=== PATIENT | male | born 1925 | race Caucasian/White ===

== ENCOUNTER 2016-09-02 10:02 | Emergency (ER) ==
[2016-09-02 10:13] VITALS: BP 175/101; TEMP 98.7; BMI 28.3
[2016-09-02 10:49] LABS: BASOPHILS % (AUTO) 0.6 % (0.0-3.0); HEMOGLOBIN 14.1 g/dl (14.0-18.0); IMMATURE GRANULOCYTE % (AUTO) 0.2 % (0.0-5.0); LYMPHOCYTES # (AUTO) 0.8 K/uL (0.60-3.4); LYMPHOCYTES % (AUTO) 13.9 (10.0-50.0); MEAN CORPUSCULAR HEMOGLOBIN 36.3 pg (27.0-31.0); MEAN CORPUSCULAR HGB CONC 35.3 (31.8-35.4); MEAN CORPUSCULAR VOLUME 103.1 fl (80.0-94.0); MONOCYTES # (AUTO) 0.7 K/uL (0.4-2.0); MONOCYTES % (AUTO) 12.2 (0-10); NEUTROPHILS % (AUTO) 73.1; PLATELET COUNT 134 10^3/uL (140-440); RED BLOOD COUNT 3.88 10^6/ul (4.70-6.10); WHITE BLOOD COUNT 5.41 K/ul (4.2-10.2)
--- NOTE | 2016-09-02 11:07 | DI ---
EXAM: Chest two view, frontal and lateral views. HISTORY: Cough. COMPARISON: 06/10/2011. FINDINGS: Heart is enlarged. Calcifications present in a mildly tortuous thoracic aorta. There is no vascular congestion. No consolidation, pleural effusion or pneumothorax identified. Degenerati ve changes present in the spine. Since the prior study, there has been no significant interval swann ge. IMPRESSION: No acute cardiopulmonary process. The.
--- NOTE | 2016-09-02 11:30 | CT ---
EXAM: CT Abdomen without contrast. CT Pelvis without contrast. HISTORY: Right-sided abdominal pain. COMPARISON: 04/25/2016. TECHNIQUE: Multiple axial images of the abdomen and pelvis were obtained without intravenous contra st. Images were reformatted in the coronal plane. FINDINGS: Please note that evaluation of the abdominal and pelvic structures is limited due to lack of intravenous contrast. Calcified granulomatous changes noted in the lung bases. Heart is enlarged. Degenerative changes present in the spine are with left convex thoracolumbar spinal curvature noted. Old right posterior rib fractures noted. Multiple hepatic cysts noted. Gallbladder is absent. The pancreas, spleen, adrenal glands are unre markable. 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 There is mild right hydronephrosis/hydroureter secondary to an 0.5 cm obstructing calculus in the di stal right ureter approximately 1 cm above ureteral vesicle junction. Additional smaller nonobstruc ting right renal calculi are present. Left kidney appears unremarkable. There has been previous ventral and inguinal hernia repair. There is evidence for bowel obstruction . Diverticula are present in the colon. The appendix is not seen. Haziness of the central small b owel mesentery is stable. Urinary bladder appears unremarkable. Prostatic calcifications present. Atherosclerotic calcifications noted. No free fluid or free air identified IMPRESSION: A 0.5 cm obstructing calculus in the distal right ureter causing mild right hydronephrosis.
[2016-09-02 11:36] LABS: ALBUMIN 3.8 g/dL (3.4-5.0); ALBUMIN/GLOBULIN RATIO 1.46; ANION GAP 15.9; BILIRUBIN,TOTAL 2.6 mg/dL (0.00-1.20); BUN/CREATININE RATIO 14.19; CALCIUM 9.1 mg/dL (8.2-10.2); CREATININE 1.62 mg/dL (0.60-1.10); POTASSIUM 3.9 mmol/L (3.5-5.1); TOTAL PROTEIN 6.4 g/dL (5.8-8.1); TROPONIN I 0.016 ng/ml (0.0000-0.4000)
[2016-09-02 11:58] LABS: BILIRUBIN,URINE Negative (NEGATIVE); KETONES,URINE Negative (NEGATIVE); LEUKOCYTE ESTERASE ,URINE Negative (NEGATIVE); NITRITE,URINE Negative (NEGATIVE); PH,URINE 5.5 (5-9); PROTEIN,URINE Negative (NEGATIVE); URINE, BLOOD Negative (NEGATIVE)
[2016-09-02 12:00] LABS: ADD URINE MICROSCOPIC NO
--- NOTE | 2016-09-02 13:08 | ED.PDOC ---
General ED Provider: Dr. JAE JEFF Chief Complaint: Abdominal Pain Stated Complaint: right flank and lower abdominal pain Time Seen by Physician: 10:00 Information Source: Patient Exam Limitations: No limitations Primary Care Provider: LISSA MENDEZ Nursing and Triage Documentation Reviewed and Agree: Yes Musculoskeletal Complaint Exam - Back Pain Complaint/Exam Mechanism of Injury: Reports: No known trauma Onset/Duration: today Symptoms Are: Still present Timing: Intermittent Episodes Lasting: Minutes Initial Severity: Mild Current Severity: Mild Location: Reports: Discrete (right flank) Character: Reports: Aching Aggravating: Reports: None Alleviating: Reports: None Associated Signs and Symptoms: Reports: Flank pain (right). Denies: Swelling, Redness, Bruising, Fever, Weakness, Numbness, Tingling, Abdominal pain, Bladder incontinence, Bowel incontinence, Weight loss, Pain with weight bearing Related History: Reports: Similar episode TAD Risk Factors: Reports: Hypertension AAA Risk Factors: Reports: Hypertension Cauda Equina Risk Factors: Reports: None Epidural Abcess Risk Factors: Reports: None Related Surgical History: Reports: None Focal Tenderness: No Paraspinal Muscle Spasm: No Scoliosis: No Lordosis: No Kyphosis: No SLR Test: Right Negative, Left Negative Hip Motion Testing Pain: Right Negative, Left Negative Focal Weakness: Present: None Focal Sensory Loss: Present: None Gait: Present: Unable Differential Diagnoses: Arthritis, Renal Colic, Strain, Sprain Review of Systems - Review Of Systems Constitutional: Reports: No symptoms Eyes: Reports: No symptoms Ears, Nose, Mouth, Throat: Reports: No symptoms Respiratory: Reports: No symptoms Cardiac: Reports: No symptoms GI: Reports: Abdominal pain : Reports: No symptoms Musculoskeletal: Reports: Back pain Skin: Reports: No symptoms Neurological: Reports: No symptoms Endocrine: Reports: No symptoms Hematologic/Lymphatic: Reports: No symptoms All Other Systems: Reviewed and Negative Past Medical History - Past Medical History Endocrine: Reports: DM 2 Cardiovascular: Reports: Hypertension Respiratory: Reports: None Hematological: Reports: None Gastrointestinal: Reports: None Genitourinary: Reports: None Neuro/Psych: Reports: CVA, Anxiety, Depression Musculoskeletal: Reports: None Cancer: Reports: None Other Pertinent Past Medical History: arthritis, chronic back pain - Surgical History General Surgical History: Reports: Hernia Repair ( x 3 ), Other (BOWEL SURGERY ) - Family History Family History: Reports: Unknown - Social History Smoking Status: Never smoker Hx Substance Use: No Alcohol Screening: None Physical Exam - Physical Exam Appearance: Well-appearing, No pain distress, Well-nourished Eyes: LOVELY, EOMI, Conjunctiva clear ENT: Ears normal, Nose normal, Oropharynx normal Respiratory: Airway patent, Breath sounds clear, Breath sounds equal, Respirations nonlabored Cardiovascular: RRR, Pulses normal, No rub, No murmur GI/: Soft, Nontender, No masses, Bowel sounds normal, No Organomegaly Musculoskeletal: Normal strength, ROM intact, No edema, No calf tenderness Skin: Warm, Dry, Normal color Neurological: Sensation intact, Motor intact, Reflexes intact, Cranial nerves intact, Alert, Oriented Psychiatric: Affect appropriate, Mood appropriate Interpretation - Radiology Interpretation Radiology Interpretation By: Radiologist Radiology Results: Positive (obstructing stone 0.5cm right UVJ) Physician Notification - Case Discussed Physician Notified: jack Time of Notification: 14:12 (sent home with pain meds flomax ) Critical Care Note - Critical Care Note Total Time (mins): 0 Course - Course Hematology/Chemistry: 09/02/16 10:31 09/02/16 10:31 Orders, Labs, Meds: Lab Review 09/02/16 09/02/16 10:31 11:50 WBC 5.41 RBC 3.88 L Hgb 14.1 Hct 40.0 L MCV 103.1 H MCH 36.3 H MCHC 35.3 RDW Coeff of Jean 13.1 Plt Count 134 L Immature Gran % (Auto) 0.2 Neut % (Auto) 73.1 Lymph % (Auto) 13.9 [place] % (Auto) 12.2 H Eos % (Auto) 0.0 Baso % (Auto) 0.6 Immature Gran # (Auto) 0.0 Neut # 4.0 Lymph # 0.8 [place] # 0.7 Eos # 0.0 Baso # 0.0 Sodium 140 Potassium 3.9 Chloride 101 Carbon Dioxide 27 Anion Gap 15.9 BUN 23 H Creatinine 1.62 H Estimated GFR (MDRD) 40.00 BUN/Creatinine Ratio 14.19 Glucose 104 Calcium 9.1 Total Bilirubin 2.60 H AST 19 ALT 19 Alkaline Phosphatase 44 L Total Creatine Kinase 74 Troponin I 0.0160 Total Protein 6.4 Albumin 3.8 Globulin 2.6 Albumin/Globulin Ratio 1.46 Amylase 47 Lipase 42 Urine Color Yellow Urine Clarity Clear Urine pH 5.5 Ur Specific [place] 1.015 Urine Protein Negative Urine Glucose (UA) Negative Urine Ketones Negative Urine Blood Negative Urine Nitrite Negative Urine Bilirubin Negative Urine Urobilinogen 0.2 Ur Leukocyte Esterase Negative Orders Category Date Time Status AMYLASE Stat LAB 09/02/16 10:31 Completed CBC W/ AUTO DIFF Stat LAB 09/02/16 10:31 Completed COMPREHENSIVE METABOLIC PANEL Stat LAB 09/02/16 10:31 Completed CREATINE KINASE Stat LAB 09/02/16 10:31 Completed LIPASE Stat LAB 09/02/16 10:31 Completed TROPONIN I Stat LAB 09/02/16 10:31 Completed URINALYSIS C & S IF INDICATED Stat LAB 09/02/16 11:50 Completed CHEST, 2 VIEWS PA & LAT Stat RADS 09/02/16 10:[address] ABDOMEN/PELVIS WO CONTRAST Stat RADS 09/02/16 10:31 Completed Vital Signs: Temp Pulse Resp BP Pulse Ox 09/02/16 10:03 98.7 F 54 L 20 175/101 H 96 Departure - Departure Time of Disposition: 14:00 Disposition: HOME SELF-CARE Discharge Problem: Urinary tract obstruction due to kidney stone, Renal insufficiency, Abdominal pain Instructions: Chronic Kidney Disease (ED), Renal Colic (ED), Kidney Stones (ED) , How to Strain Your Urine (ED), Flank Pain (ED) Condition: Good Pt referred to PMD for follow-up: No Additional Instructions: Please call your Family Physician as soon as possible to schedule a follow-up appointment. Allergies/Adverse Reactions: Allergies cephalexin [From Keflex] Adverse Reaction (Verified 09/02/16 10:16) Home Medications: Ambulatory Orders Amiodarone HCl 200 mg PO DAILY 06/21/15 Aspirin [Aspirin EC] 81 mg PO DAILYWM 06/21/15 Carvedilol 12.5 mg PO BID 06/21/15 Furosemide [Lasix] 20 mg PO BID 06/21/15 Lisinopril 10 mg PO DAILY 06/21/15 Multivitamin W-Minerals/Lutein [Vision Plus Lutein Vitamin Tab] 1 tab PO DAILY 06/21/15 [place]-3 Fatty Acids/Fish Oil [Fish Oil 1,000 mg Capsule] 1 cap PO DAILY Pantoprazole Sodium 40 mg PO DAILY 06/21/15 Potassium Chloride [K-Dur] 1.5 tab PO EVERY OTHER DAY 06/21/15 Sertraline HCl 100 mg PO DAILY 06/21/15 Cholecalciferol (Vitamin D3) [Vitamin D3] 400 unit PO DAILY 09/02/16 Hydrocodone/Acetaminophen [Hydrocodon-Acetaminophen 5-325] 1 each PO TID PRN 04/10 Disposition Discussed With: Patient, Family
== END 2016-09-02 14:49 | disposition home or self-care (01) ==
LOC: ED 10:02
DX: N13.2 Hydronephrosis with renal and ureteral calculous obstruction (principal); N28.9 Disorder of kidney and ureter, unspecified; R10.9 Unspecified abdominal pain; I10 Essential (primary) hypertension; E11.9 Type 2 diabetes mellitus without complications; M19.90 Unspecified osteoarthritis, unspecified site; M54.9 Dorsalgia, unspecified; G89.29 Other chronic pain; Z79.899 Other long term (current) drug therapy; Z86.73 Personal history of transient ischemic attack (TIA), and cerebral infarction without residual deficits
CPT/HCPCS: 36415; 80053; 81001; 82150; 82550; 83690; 84484; 85025; 99283

== ENCOUNTER 2016-10-23 20:14 | Emergency (ER) ==
[2016-10-23 20:23] VITALS: BP 174/89; TEMP 98.5; BMI 28.2
--- NOTE | 2016-10-23 20:33 | ED.PDOC ---
General ED Provider: Dr. JACKELIN BENITES-ER Chief Complaint: Non-specific Complaint Stated Complaint: he has skin tear --its bleeding Time Seen by Physician: 20:20 Mode of Arrival: Walk-In Information Source: Patient Exam Limitations: No limitations Primary Care Provider: LISSA MENDEZ Nursing and Triage Documentation Reviewed and Agree: Yes Skin Complaint Exam - Laceration/Upper Ext. Complaint/Exam Location of Injury: Left, Arm Mechanism of Injury: Abrasion Onset/Duration: one hour Symptoms Are: Still present Initial Severity: Mild Current Severity: Mild Aggravating: Movement Alleviating: Compression Associated Signs and Symptoms: Denies: Fever, Chills, Erythema, Numbness, Tingling Differential Diagnoses: Abrasion, Avulsion, Other Review of Systems - Review Of Systems Constitutional: Reports: No symptoms Eyes: Reports: No symptoms Ears, Nose, Mouth, Throat: Reports: No symptoms Respiratory: Reports: No symptoms Cardiac: Reports: No symptoms GI: Reports: No symptoms : Reports: No symptoms Musculoskeletal: Reports: No symptoms Skin: Reports: Other Neurological: Reports: No symptoms Endocrine: Reports: No symptoms Hematologic/Lymphatic: Reports: No symptoms All Other Systems: Reviewed and Negative Past Medical History - Past Medical History Endocrine: Reports: DM 2 Cardiovascular: Reports: Hypertension Respiratory: Reports: None Hematological: Reports: None Gastrointestinal: Reports: None Genitourinary: Reports: None Neuro/Psych: Reports: CVA, Anxiety, Depression Musculoskeletal: Reports: None Cancer: Reports: None Other Pertinent Past Medical History: arthritis, chronic back pain - Surgical History General Surgical History: Reports: Hernia Repair ( x 3 ), Other (BOWEL SURGERY ) - Family History Family History: Reports: Unknown - Social History Smoking Status: Never smoker Hx Substance Use: No Alcohol Screening: None Lives: With family - Immunizations Tetanus Shot up to Date: Yes Physical Exam - Physical Exam Appearance: Well-appearing, No pain distress, Well-nourished Eyes: LOVELY, EOMI, Conjunctiva clear ENT: Ears normal, Nose normal, Oropharynx normal Neck: Supple Respiratory: Airway patent, Breath sounds clear, Breath sounds equal, Respirations nonlabored Cardiovascular: RRR, Pulses normal, No rub, No murmur GI/: Soft Musculoskeletal: Normal strength, ROM intact, No edema, No calf tenderness Skin: Warm, Dry, Normal color Neurological: Sensation intact, Motor intact, Reflexes intact, Cranial nerves intact, Alert, Oriented Psychiatric: Affect appropriate, Mood appropriate Procedures - Laceration/Wound Repair No standard instances Wound Description: Skin tear Wound Length (cm): 2cm Wound Explored: Clean Wound Irrigated: Yes Wound Prep: Hibiclens Layer Closure?: No Sterile Dressing Applied?: Yes Splint Applied?: No Sling Applied?: No Re-Evaluation - Re-Evaluation Time of Re-Evaluation: 20:34 Status: Improved Vital Signs Stable: Yes Pain Level: 0 Appearance: NAD Lungs: Clear Skin: Warm and Dry Neuro: Alert and Oriented X3 CV: RRR (surgicel and telfa dressing applied along with tom wrap) Critical Care Note - Critical Care Note Total Time (mins): 0 Course - Course Orders, Labs, Meds: Orders Category Date Time Status TOM [ED TOM WRAP] .ONCE EMERGENCY 10/23/16 20:36 Active Ice Pack [ED APPLY ICE AFFECTED AREA] .ONCE EMERGENCY 10/23/16 20:37 Active SURGICELL [ED SURGICELL APPLICATION] .ONCE EMERGENCY 10/23/16 20:35 Active Vital Signs: Temp Pulse Resp BP Pulse Ox 10/23/16 20:15 98.5 F 58 L 20 174/89 H 97 Departure - Departure Time of Disposition: 20:36 Disposition: HOME SELF-CARE Discharge Problem: Skin tear Instructions: Skin Tear (ED) Condition: Good Pt referred to PMD for follow-up: Yes Additional Instructions: keep wrapped tonight--stoip asa and fish oil for 3 days--change dressing daily till healed Allergies/Adverse Reactions: Allergies cephalexin [From Keflex] Adverse Reaction (Verified 10/23/16 20:23) Home Medications: Ambulatory Orders Amiodarone HCl 200 mg PO DAILY 06/21/15 Aspirin [Aspirin EC] 81 mg PO DAILYWM 06/21/15 Carvedilol 12.5 mg PO BID 06/21/15 Furosemide [Lasix] 30 mg PO BID 06/21/15 Lisinopril 10 mg PO DAILY 06/21/15 Multivitamin W-Minerals/Lutein [Vision Plus Lutein Vitamin Tab] 1 tab PO DAILY 06/21/15 [place]-3 Fatty Acids/Fish Oil [Fish Oil 1,000 mg Capsule] 1 cap PO BID 06/21/15 Pantoprazole Sodium 40 mg PO DAILY 06/21/15 Potassium Chloride [K-Dur] 1.5 tab PO EVERY OTHER DAY 06/21/15 Sertraline HCl 100 mg PO DAILY 06/21/15 Cholecalciferol (Vitamin D3) [Vitamin D3] 400 unit PO BID 09/02/16 Hydrocodone/Acetaminophen [Hydrocodon-Acetaminophen 5-325] 1 each PO TID PRN 04/10 Disposition Discussed With: Patient, Family
== END 2016-10-23 20:45 | disposition home or self-care (01) ==
LOC: ED 20:14
DX: S41.112A Laceration without foreign body of left upper arm, initial encounter (principal)
CPT/HCPCS: 99282

== ENCOUNTER 2016-11-22 15:42 | Emergency (ER) ==
[2016-11-22 15:53] VITALS: BP 171/100; TEMP 97; BMI 27.8
--- NOTE | 2016-11-22 16:06 | ED.PDOC ---
General ED Provider: Dr. MIRI ORTEGA JR Chief Complaint: Constipation Stated Complaint: ABDOMINAL PAIN NAUSEA AND BLOATING has chronic constipation-- states will go 3-4 days without bm then bowel will move--on amitiza--had loose bm with first dose--has had intermittent abd pain--freq belching--had exploratory surg with several adhesions to bowels. [ End ]97.0 59 20 97 171/ 100. htn dm cva gerd depr anx arth chronicback pain. exploratory abd surg-november 2006 Time Seen by Physician: 16:05 Mode of Arrival: Walk-In Information Source: Patient, Family Exam Limitations: No limitations Primary Care Provider: LISSA MENDEZ Nursing and Triage Documentation Reviewed and Agree: No Review of Systems - Review Of Systems Constitutional: Reports: Malaise Eyes: Reports: No symptoms Ears, Nose, Mouth, Throat: Reports: No symptoms Respiratory: Reports: No symptoms Cardiac: Reports: No symptoms GI: Reports: Abdomen distended, Abdominal pain, Diarrhea, Nausea : Reports: No symptoms Musculoskeletal: Reports: No symptoms Skin: Reports: No symptoms Neurological: Reports: Cognitive dysfunction Endocrine: Reports: No symptoms Hematologic/Lymphatic: Reports: No symptoms All Other Systems: Other Past Medical History - Past Medical History Endocrine: Reports: DM 2 Cardiovascular: Reports: Hypertension Respiratory: Reports: None Hematological: Reports: None Gastrointestinal: Reports: None Genitourinary: Reports: None Neuro/Psych: Reports: CVA, Anxiety, Depression Musculoskeletal: Reports: None Cancer: Reports: None Other Pertinent Past Medical History: arthritis, chronic back pain - Surgical History General Surgical History: Reports: Hernia Repair ( x 3 ), Other (BOWEL SURGERY ) - Family History Family History: Reports: Unknown - Social History Smoking Status: Never smoker Hx Substance Use: No Alcohol Screening: None Physical Exam - Physical Exam Appearance: Well-appearing Ill-appearing: Mild Pain Distress: Mild Eyes: LOVELY, EOMI, Conjunctiva clear ENT: Ears normal, Nose normal, Oropharynx normal Neck: Supple Respiratory: Airway patent, Breath sounds clear, Breath sounds equal, Respirations nonlabored Cardiovascular: RRR, Pulses normal, No rub, No murmur GI/: Soft, No masses, Tender, Bowel sounds hyperactive Musculoskeletal: Normal strength, ROM intact, No edema, No calf tenderness Skin: Warm, Dry, Normal color Neurological: Sensation intact, Motor intact, Reflexes intact, Cranial nerves intact, Alert Psychiatric: Affect appropriate, Mood appropriate Critical Care Note - Critical Care Note Total Time (mins): 0 Course - Course Hematology/Chemistry: 11/22/16 16:10 11/22/16 16:10 Orders, Labs, Meds: Lab Review 11/22/16 16:10 WBC 4.44 RBC 4.05 L Hgb 14.6 Hct 41.0 L MCV 101.2 H MCH 36.0 H MCHC 35.6 H RDW Coeff of Jean 12.5 Plt Count 188 Immature Gran % (Auto) 0.2 Neut % (Auto) 60.4 Lymph % (Auto) 26.8 [place] % (Auto) 11.7 H Eos % (Auto) 0.0 Baso % (Auto) 0.9 Immature Gran # (Auto) 0.0 Neut # 2.7 Lymph # 1.2 [place] # 0.5 Eos # 0.0 Baso # 0.0 Sodium 139 Potassium 3.5 Chloride 105 Carbon Dioxide 25 Anion Gap 12.5 BUN 16 Creatinine 1.00 Estimated GFR (MDRD) 70.00 BUN/Creatinine Ratio 16.00 Glucose 113 Calcium 9.0 Total Bilirubin 1.79 H AST 14 L ALT 15 Alkaline Phosphatase 55 L Total Protein 6.6 Albumin 3.8 Globulin 2.8 Albumin/Globulin Ratio 1.36 Amylase 49 Lipase 52 Orders Category Date Time Status AMYLASE Stat LAB 11/22/16 16:10 Completed CBC W/ AUTO DIFF Stat LAB 11/22/16 16:10 Completed COMPREHENSIVE METABOLIC PANEL Stat LAB 11/22/16 16:10 Completed LIPASE Stat LAB 11/22/16 16:10 Completed URINALYSIS C & S IF INDICATED Stat LAB 11/22/16 16:[address] ABDOMEN/PELVIS WO CONTRAST Stat RADS 11/22/16 16:06 Completed Vital Signs: Temp Pulse Resp BP Pulse Ox 11/22/16 15:43 97 F L 59 L 20 171/100 H 97 Departure - Departure Time of Disposition: 17:54 Disposition: HOME SELF-CARE Discharge Problem: Constipation, Medication reaction Instructions: Abdominal Pain (ED), Gas and Bloating (ED) Condition: Good Pt referred to PMD for follow-up: Yes Additional Instructions: caution with Amitiza, can cause side effect- (no evidence of excess stool on x rays) no concerning changes in the gut recheck PMD one week return if fever or unable to keep clear liquids down try 1 tablet once a day if feeling constipated Allergies/Adverse Reactions: Allergies cephalexin [From Keflex] Adverse Reaction (Verified 11/22/16 15:55) Home Medications: Ambulatory Orders Amiodarone HCl 200 mg PO DAILY 06/21/15 Aspirin [Aspirin EC] 81 mg PO DAILYWM 06/21/15 Carvedilol 12.5 mg PO BID 06/21/15 Furosemide [Lasix] 30 mg PO BID 06/21/15 Lisinopril 10 mg PO DAILY 06/21/15 Multivitamin W-Minerals/Lutein [Vision Plus Lutein Vitamin Tab] 1 tab PO DAILY 06/21/15 [place]-3 Fatty Acids/Fish Oil [Fish Oil 1,000 mg Capsule] 1 cap PO BID 06/21/15 Pantoprazole Sodium 40 mg PO DAILY 06/21/15 Potassium Chloride [K-Dur] 1.5 tab PO EVERY OTHER DAY 06/21/15 Sertraline HCl 100 mg PO DAILY 06/21/15 Cholecalciferol (Vitamin D3) [Vitamin D3] 400 unit PO BID 09/02/16
[2016-11-22 16:17] LABS: BASOPHILS % (AUTO) 0.9 % (0.0-3.0); HEMOGLOBIN 14.6 g/dl (14.0-18.0); IMMATURE GRANULOCYTE % (AUTO) 0.2 % (0.0-5.0); LYMPHOCYTES # (AUTO) 1.2 K/uL (0.60-3.4); LYMPHOCYTES % (AUTO) 26.8 (10.0-50.0); MEAN CORPUSCULAR HGB CONC 35.6 (31.8-35.4); MEAN CORPUSCULAR VOLUME 101.2 fl (80.0-94.0); MONOCYTES # (AUTO) 0.5 K/uL (0.4-2.0); MONOCYTES % (AUTO) 11.7 (0-10); NEUTROPHILS # (AUTO) 2.7 K/ul (2.0-6.9); NEUTROPHILS % (AUTO) 60.4; PLATELET COUNT 188 10^3/uL (140-440); RED BLOOD COUNT 4.05 10^6/ul (4.70-6.10); WHITE BLOOD COUNT 4.44 K/ul (4.2-10.2)
[2016-11-22 16:38] LABS: ALBUMIN 3.8 g/dL (3.4-5.0); ALBUMIN/GLOBULIN RATIO 1.36; ANION GAP 12.5; BILIRUBIN,TOTAL 1.79 mg/dL (0.00-1.20); POTASSIUM 3.5 mmol/L (3.5-5.1); TOTAL PROTEIN 6.6 g/dL (5.8-8.1)
--- NOTE | 2016-11-22 16:50 | CT ---
EXAM: CT of the abdomen pelvis without contrast History: Abdominal pain. Comparison: CT abdomen pelvis 09/02/2016 Technique: Multiplanar CT images through the abdomen pelvis were obtained without the administratio n of IV contrast Findings: Heart is mildly enlarged. Lung bases are free of consolidation. No acute osseous abnorm alities. Osteopenia. Degenerative changes of the spine. No change in the nonspecific ezra mesentery. Cholecystectomy clips. No change in the hepatic cyst s. Atherosclerotic vascular calcifications. Spleen is unremarkable. No peripancreatic inflammatio n. Adrenal glands are unremarkable. 3 mm right renal calcification. No left renal calculi. No hy dronephrosis. No ureteral calculi. There are a few punctate 1 mm calculi seen within the left side of the bladder. No bowel obstruction. No free air. No ascites. Postsurgical changes of ventral hernia repair again noted. No bladder wall thickening. Trace pelvic fluid. Prostatic calcificatio ns. Prostate is enlarged. No perirectal inflammation. Impression: 1. Nonobstructing right nephrolithiasis. 2. Small bladder calculi. 3. 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 4. Colonic diverticulosis. 5. Mild cardiomegaly. 6. Enlarged prostate. 7. Trace pelvic fluid. 8. No change in the hepatic cysts.
== END 2016-11-22 18:10 | disposition home or self-care (01) ==
LOC: ED 15:42
DX: K59.00 Constipation, unspecified (principal); T47.2X5A Adverse effect of stimulant laxatives, initial encounter; R10.9 Unspecified abdominal pain; R11.0 Nausea; R14.0 Abdominal distension (gaseous); I10 Essential (primary) hypertension; E11.9 Type 2 diabetes mellitus without complications; Z79.899 Other long term (current) drug therapy
CPT/HCPCS: 36415; 80053; 82150; 83690; 85025; 99283

== ENCOUNTER 2017-01-14 10:47 | Emergency (ER) | payer OTHER ==
[2017-01-14 10:52] VITALS: BP 138/70; TEMP 97.5; BMI 27.3
[2017-01-14 11:32] LABS: BASOPHILS % (AUTO) 0.7 % (0.0-3.0); HEMATOCRIT 34.1 % (42.0-52.0); HEMOGLOBIN 11.9 g/dl (14.0-18.0); IMMATURE GRANULOCYTE % (AUTO) 0.2 % (0.0-5.0); LYMPHOCYTES # (AUTO) 0.9 K/uL (0.60-3.4); LYMPHOCYTES % (AUTO) 18.7 (10.0-50.0); MEAN CORPUSCULAR HEMOGLOBIN 36.2 pg (27.0-31.0); MEAN CORPUSCULAR HGB CONC 34.9 (31.8-35.4); MEAN CORPUSCULAR VOLUME 103.6 fl (80.0-94.0); MONOCYTES # (AUTO) 0.5 K/uL (0.4-2.0); MONOCYTES % (AUTO) 11.5 (0-10); NEUTROPHILS # (AUTO) 3.2 K/ul (2.0-6.9); NEUTROPHILS % (AUTO) 68.9; PLATELET COUNT 170 10^3/uL (140-440); RED BLOOD COUNT 3.29 10^6/ul (4.70-6.10); WHITE BLOOD COUNT 4.61 K/ul (4.2-10.2)
[2017-01-14 11:46] LABS: PARTIAL THROMBOPLASTIN TIME 24.1 SEC (23.9-40.0); PROTHROMBIN TIME 10.7 SEC (9.3-11.0)
[2017-01-14 12:00] LABS: ALBUMIN 3.5 g/dL (3.4-5.0); ALBUMIN/GLOBULIN RATIO 1.46; ANION GAP 12.3; BILIRUBIN,TOTAL 1.75 mg/dL (0.00-1.20); BUN/CREATININE RATIO 13.25; CALCIUM 8.8 mg/dL (8.2-10.2); CREATININE 0.83 mg/dL (0.60-1.10); POTASSIUM 3.3 mmol/L (3.5-5.1); TOTAL PROTEIN 5.9 g/dL (5.8-8.1); TROPONIN I 0.029 ng/ml (0.0000-0.4000)
--- NOTE | 2017-01-14 13:22 | CT ---
Exam: CT thoracic spine without contrast. Clinical indication: Fall with back pain. TECHNIQUE: Axial unenhanced CT images from the lower cervical spine through the upper lumbar spine were obtained followed by coronal and sagittal reformats. Findings: There is a kyphoscoliosis of the thoracic spine convex right. The remainder of the alignment is wit hin normal limits. There is multilevel thoracic vertebral body degenerative changes. There are no acute fractures within the visualized vertebral bodies and ribs. There is multilevel f lowing anterior vertebral body osteophytes seen throughout the thoracic spine. There is no evidence of spinal stenosis or neural foraminal narrowing throughout the thoracic spine. Note is again made of a 1.9 cm probable splenic artery aneurysm. Otherwise, the visualized soft tis sues are unremarkable. Impression: 1. No acute thoracic vertebral fracture. 2. Splenic artery aneurysm.
--- NOTE | 2017-01-14 13:23 | CT ---
EXAM: CT of the cervical spine without contrast History: Head and neck trauma. Technique: Multiplanar CT images through the cervical spine were obtained without the administratio n of IV contrast Findings: Mucosal thickening of the sphenoid sinuses with debris. Atherosclerotic vascular calcific ations. The visualized upper lungs are free of consolidation. Right mastoid effusion Mild anterolisthesis of C4 and C5 most likely degenerative in nature. No acute fracture. Osteopeni a. No prevertebral soft tissue swelling. Predental space is not widened. Severe disc space narrow ing at C4-5 with endplate sclerosis and osteophyte formation. Bony spinal canal is not significantl y compromised. Multilevel bilateral bony neural foraminal narrowing secondary to uncovertebral and facet hypertrophy. Impression: 1. No acute fracture. 2. 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 3. Sphenoid sinus disease.
--- NOTE | 2017-01-14 13:23 | CT ---
EXAM: CT BRAIN HISTORY: Fall, 4 days prior TECHNIQUE: CT brain without intravenous contrast. 5-mm axial sections with Reformations. COMPARISON: 04/25/2016 FINDINGS: There is generalized atrophy. Moderately severe chronic microvascular ischemic change is suggested. These findings are stable. Brain otherwise is unremarkable without distinct evidence of hemorrhage or large vessel distribution recent ischemic infarction. There is no suggestion of acute hydroceph alus or subdural fluid collection. No mass or mass effect. No skull fracture is identified. There is a central opacification within the left sphenoid sinus me asuring 1.5 x 2.7 cm unchanged since the previous exam. This may be related to chronic sinus diseas e. A neoplasm would be a less likely consideration given relative stability. Mastoid air cells are aerated. IMPRESSION: 1. Significant involutional changes appear stable. No obvious acute intracranial process or injury . No skull fracture. 2. Sinus disease as described.
--- NOTE | 2017-01-14 13:28 | CT ---
Exam: CT lumbar spine without contrast. Clinical indication: Fall with back pain. TECHNIQUE: Axial unenhanced CT images from the lower thoracic spine through the mid sacrum were obt ained followed by coronal and sagittal reformats. Comparison is made to the prior study dated 04/25/2016. Findings: There are five non-rib bearing lumbar vertebra. There is a lumbar scoliosis convex left secondary to multilevel degenerative changes. The remainder of the alignment is within normal limits. The there are no acute fractures within the visualized bony structures. At the T12-L1 level there is degenerative disc and facet disease, but no spinal stenosis or neural f oraminal narrowing. At the L1-L2 level there is a moderate posterior disc osteophyte complex associate with bilateral fa cet hypertrophic degenerative changes, causing moderate to severe right neural foraminal narrowing. At the L2-L3 level there is moderate degenerative disc disease associate with a mild to moderate bro ad-based posterior disc bulge and bilateral facet hypertrophic degenerative changes, causing moderat e to severe right and mild left neural foraminal narrowing. At the L3-L4 level there is a large posterior disc osteophyte complex associate with bilateral facet hypertrophic degenerative changes and ligamentum flavum hypertrophy, causing mild spinal stenosis a nd moderate to severe bilateral neural foraminal narrowing. At the L4-L5 level there is a mild posterior disc osteophyte complex associate with bilateral facet hypertrophic degenerative changes, causing minimal right and moderate to severe left neural foramina l narrowing. At the L5-S1 level there is a posterior disc osteophyte complex associate with bilateral facet hyper trophic degenerative changes, causing mild left neural foraminal narrowing. There is sigmoid diverticulosis. There is aortoiliac atherosclerotic vascular calcifications. There is a 0.6 cm right-sided nonobstructive renal calculus. 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 The remainder the visualized soft tissues are u nremarkable. Impression: 1. No acute lumbar fracture. 2. Lumbar scoliosis convex left. 3. Multilevel degenerative changes with spinal stenosis and neural foraminal narrowing, as describe d above on the level by level basis. 4. Sigmoid diverticulosis. 5. 0.6 cm right-sided nonobstructive renal calculus. 6. 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
--- NOTE | 2017-01-14 13:28 | CT ---
EXAM: CT chest without contrast HISTORY: Fall 4 days ago COMPARISON: None TECHNIQUE: Serial axial images of the chest were obtained from the lung apices to the upper abdomen without contrast. These were viewed in multiple planes. FINDINGS: The thyroid is mildly heterogeneous. The visualized vessels demonstrate mild atheroscler otic disease. Pulmonary artery is normal. The heart is enlarged with no pericardial fluid. There are calcified hilar lymph nodes. There is no pathologically enlarged lymph nodes present. There is no pneumothorax or pleural effusion. There is mild bibasilar atelectasis. There is mild l ower lobe airway thickening and minimal ground-glass. There is a 0.5 cm pulmonary nodule on image 4 0 in the right lung base. There is a 0.3 cm pulmonary nodule in the left upper lobe on image 17. T here is a calcified granuloma in the left lower lobe on image 34. The airways are patent. There is significant degenerative disease of both shoulders with narrowing and osteophyte formation. The ribs demonstrate no cortical irregularity or displaced fracture. There is multilevel degenerat lupillo disease of the thoracic spine. This is better described on same day CT. Soft tissues in the up per abdomen are better evaluated on same day CT abdomen pelvis. IMPRESSION: 1. No acute cardiopulmonary process or pneumothorax. There is no displaced rib fracture identified . 2. Degenerative disease of the shoulders and spine which are better described on same day CT thorac ic spine. 3. Pulmonary nodules as described above with mild lower lobe airway thickening and inflammatory str anding likely representing chronic process. If further evaluation is clinically indicated, follow-u p CT in 6 months - 1 year is recommended. 4. Mild scattered atherosclerotic disease.
--- NOTE | 2017-01-14 13:28 | DI ---
EXAM: Three views of the right shoulder HISTORY: Pain post fall 4 days prior. COMPARISON: Same day right humerus x-ray FINDINGS: There is no cortical irregularity or displaced fracture of the right shoulder. There is n o lytic or blastic lesion. There is significant narrowing of the glenohumeral joint and the acromio clavicular joint with significant osteophyte formation. The adjacent ribs are normal in appearance. IMPRESSION: Moderate to severe degenerative disease of the right shoulder with no displaced fractur e or dislocation.
--- NOTE | 2017-01-14 13:29 | DI ---
Exam: Three views left shoulder Clinical indication: Fall with left shoulder pain. 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 Otherwise, there are no fractures, dislocations or other significant bony abnormalities. The visualized pulmonary pa renchyma and ribs are unremarkable. Impression: 1. 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 2. Otherwise negative radiographs of the left shoulder.
--- NOTE | 2017-01-14 13:31 | DI ---
EXAM: Two views of the left humerus HISTORY: Fall 4 days prior. COMPARISON: Same day CT chest and multiple x-rays FINDINGS: There is degenerative disease of the left shoulder with narrowing and osteophyte formation . There is no displaced fracture or dislocation. There is no lytic or blastic lesion identified. The elbow is poorly visualized. Soft tissues are unremarkable. IMPRESSION: 1. No acute abnormality or displaced fracture of the left humerus. 2. Degenerative disease of the left shoulder.
--- NOTE | 2017-01-14 13:32 | DI ---
Exam: Two views right femur. Clinical indication: Fall with right leg pain. Findings / impression: There are no acute fractures, dislocations or other significant bony abnorma lities. The joints are within normal limits for the patient's age.
--- NOTE | 2017-01-14 13:32 | DI ---
EXAM: Two views of the right humerus HISTORY: Pain post fall 4 days prior. COMPARISON: Right shoulder x-rays same day FINDINGS: There is no cortical irregularity or displaced fracture of the right humerus. There is de generative change of the right shoulder better described on same day shoulder x-ray. There is no ly tic or blastic lesion. The soft tissues are unremarkable. IMPRESSION: No acute abnormality or displaced fracture of the right humerus with degenerative disea se of the right shoulder.
--- NOTE | 2017-01-14 13:33 | DI ---
Exam: Two views right tibia and fibula. Clinical indication: Fall with right leg pain. Findings: There is no right knee or ankle effusion. There is some mild osteoarthritic changes within the righ t knee. Otherwise, there are no fractures, dislocations or other significant bony abnormality. Impression: No acute fractures.
--- NOTE | 2017-01-14 13:33 | DI ---
EXAM: Two views of the right knee HISTORY: Pain post fall 4 days prior. COMPARISON: Same day, opposite knee x-rays FINDINGS: There is moderate narrowing of the medial compartment and osteophyte formation. The later al compartment demonstrates osteophyte formation and mild calcifications of the meniscus. There is no displaced fracture or dislocation. The patella is normal in position with mild narrowing and ost eophyte formation. The soft tissues are unremarkable. IMPRESSION: 1. No displaced fracture or dislocation of the right knee. 2. 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
--- NOTE | 2017-01-14 13:33 | DI ---
EXAM: Two views of the left tibia and fibula HISTORY: Pain post fall 4 days prior. COMPARISON: Same day left knee x-rays FINDINGS: There is a left knee arthroplasty change with hardware in place. There is no cortical irr egularity or displaced fracture of the left tibia or fibula. There is degenerative change of the le ft ankle in the hind foot. There is no abnormal periosteal reaction. Soft tissues are unremarkable . IMPRESSION: 1. No displaced fracture or dislocation of the left tibia-fibula. 2. Left knee arthroplasty changes better described on same day knee x-ray. 3. Mild degenerative disease of the left ankle.
--- NOTE | 2017-01-14 13:34 | DI ---
Exam: Two views left femur. Clinical indication: Fall with pain. Findings / impression: There is minimal left hip osteoarthritic changes. There is evidence of a left total knee arthroplas ty, without radiographic evidence of hardware complication. The remainder of the visualized bony st ructures are unremarkable.
--- NOTE | 2017-01-14 13:34 | DI ---
Exam: Two views left knee. linical indication: Fall with left knee pain. Findings: There is no left knee effusion. There is a left total knee arthroplasty without radiographic evidence of hardware complication. Oth erwise, there are no fractures, dislocations or other significant bony abnormalities. There is atherosclerotic vascular calcifications. Impression: Left total knee arthroplasty, without radiographic evidence of hardware complication.
--- NOTE | 2017-01-14 13:35 | DI ---
Exam: Two views right elbow. Clinical indication: Fall with right elbow pain. Findings: There is no right elbow effusion. There is an enthesophyte on the right lateral epicondyle. Otherw ise, there are no fractures, dislocations or other significant bony abnormalities. Impression: Negative radiographs of the right elbow.
--- NOTE | 2017-01-14 13:36 | DI ---
EXAM: Two views of the left elbow HISTORY: Pain post fall. COMPARISON: Same day right elbow x-rays FINDINGS: There is no cortical irregularity or displaced fracture. There is degenerative change and mild joint space narrowing. The left elbow with an olecranon osteophyte present. The soft tissues are unremarkable. There are no displaced fat pads. IMPRESSION: Degenerative disease of the left elbow with no acute abnormality or displaced fracture.
--- NOTE | 2017-01-14 13:37 | DI ---
EXAM: Three views of the right wrist HISTORY: Fall with pain. COMPARISON: Left wrist x-rays same day FINDINGS: There is narrowing of the radiocarpal joint. There is no displaced fracture or dislocatio n of the right wrist. There is osteophyte formation. The carpal bones demonstrate mild degenerativ e change. The metacarpals are unremarkable. IMPRESSION: Degenerative disease of the right wrist with no acute abnormality or displaced fracture .
--- NOTE | 2017-01-14 13:37 | DI ---
EXAM: Three views left hand. CLINICAL INDICATION: Fall with left hand pain. FINDINGS: There are degenerative changes at the first carpal-metacarpal joint. There is also degenerative dominik nges within the left second PIP and DIP joints. There are also degenerative changes at the left radi ocarpal joint. Otherwise, there are no fractures, dislocations or other significant bony abnormaliti es. There is no gross soft tissue abnormality. IMPRESSION: 1. No acute fractures. 2. Degenerative changes as described above.
--- NOTE | 2017-01-14 13:38 | DI ---
EXAM: Two views of the right hand HISTORY: Pain post fall 4 days prior. COMPARISON: Same day right wrist x-ray FINDINGS: There is degenerative disease of the radiocarpal joint with narrowing and osteophyte forma tion. The metacarpals and fingers demonstrate no cortical irregularity or displaced fracture. Ther e is scattered narrowing and osteophyte formation throughout the DIP and PIP joints. Note definitiv e erosion is identified. The soft tissues are unremarkable. IMPRESSION: No acute abnormality or displaced fracture of the right hand. There is scattered degen erative disease throughout the right hand.
--- NOTE | 2017-01-14 13:38 | DI ---
EXAM: Two views left ankle Clinical indication: Fall with left ankle pain. Findings: There is no soft tissue abnormality. There is no left ankle effusion. There is an enthesophyte on the calcaneus at the insertion of the Achilles tendon. Otherwise, there are are no fractures, dislocations or other significant bony abnormalities. Impression: Negative radiographs of the left ankle.
--- NOTE | 2017-01-14 13:44 | ED.PDOC ---
General ED Provider: Dr. JAE JEFF Chief Complaint: Fall Stated Complaint: fall pain all over Time Seen by Physician: 11:00 Mode of Arrival: Wheelchair Information Source: Patient Exam Limitations: No limitations Primary Care Provider: LISSA MENDEZ Nursing and Triage Documentation Reviewed and Agree: Yes Trauma/Injury Complaint Exam - Trauma Complaint/Exam Location of Pain or Injury: Reports: Head, Neck, RUE, LUE, Chest, Abdomen, Back , RLE, LLE Mechanism of Injury: Reports: Fall (standing postion) Onset/Duration: 3 days ago Symptoms Are: Still present Timing of Treatment: Delayed Initial Severity: Moderate Current Severity: Moderate Character: Reports: Aching Aggravating: Reports: Movement, Ambulation, Palpation Alleviating: Reports: Rest Associated Signs and Symptoms: Reports: Bruising (upper ext lower left right lower ext). Denies: LOC, Confusion, Memory loss, Lethargy, Vomiting, Bleeding, Swelling, Extremity disuse, Painful respiration, Hoarseness, Dysphagia, Hemoptysis, Significant blood loss Penetrating Injury Risk Factors: Reports: None Related Surgical History: Reports: None Nexus Low Risk Criteria: No post-midline CS tender, No evidence of intoxicat., No Altered LOC, No focal neuro deficit, No distracting injuries Glascow Coma Scale (see protocol): 15 Review of Systems - Review Of Systems Constitutional: Reports: No symptoms Eyes: Reports: No symptoms Ears, Nose, Mouth, Throat: Reports: No symptoms Respiratory: Reports: No symptoms Cardiac: Reports: Chest pain GI: Reports: No symptoms : Reports: No symptoms Musculoskeletal: Reports: Back pain, Neck pain Skin: Reports: No symptoms Neurological: Reports: No symptoms Endocrine: Reports: No symptoms Hematologic/Lymphatic: Reports: No symptoms All Other Systems: Reviewed and Negative Past Medical History - Past Medical History Endocrine: Reports: DM 2 Cardiovascular: Reports: Hypertension Respiratory: Reports: None Hematological: Reports: None Gastrointestinal: Reports: None Genitourinary: Reports: None Neuro/Psych: Reports: CVA, Anxiety, Depression Musculoskeletal: Reports: None Cancer: Reports: None Other Pertinent Past Medical History: arthritis, chronic back pain - Surgical History General Surgical History: Reports: Hernia Repair ( x 3 ), Other (BOWEL SURGERY ) - Family History Family History: Reports: Unknown - Social History Smoking Status: Never smoker Hx Substance Use: No Alcohol Screening: None Physical Exam - Physical Exam Appearance: Well-appearing, No pain distress, Well-nourished Eyes: LOVELY, EOMI, Conjunctiva clear ENT: Ears normal, Nose normal, Oropharynx normal Respiratory: Airway patent, Breath sounds clear, Breath sounds equal, Respirations nonlabored Cardiovascular: RRR, Pulses normal, No rub, No murmur GI/: Soft, Nontender, No masses, Bowel sounds normal, No Organomegaly Musculoskeletal: Normal strength, ROM intact, No edema, No calf tenderness Skin: Warm, Dry (ecchymotic changes all lower) Neurological: Sensation intact, Motor intact, Reflexes intact, Cranial nerves intact, Alert, Oriented Psychiatric: Affect appropriate, Mood appropriate Interpretation - Radiology Interpretation Radiology Interpretation By: Radiologist Critical Care Note - Critical Care Note Total Time (mins): 0 Course - Course Hematology/Chemistry: 01/14/17 11:25 01/14/17 11:25 Orders, Labs, Meds: Lab Review 01/14/17 11:25 WBC 4.61 RBC 3.29 L Hgb 11.9 L Hct 34.1 L MCV 103.6 H MCH 36.2 H MCHC 34.9 RDW Coeff of Jean 14.6 Plt Count 170 Immature Gran % (Auto) 0.2 Neut % (Auto) 68.9 Lymph % (Auto) 18.7 Terry % (Auto) 11.5 H Eos % (Auto) 0.0 Baso % (Auto) 0.7 Immature Gran # (Auto) 0.0 Neut # 3.2 Lymph # 0.9 Terry # 0.5 Eos # 0.0 Baso # 0.0 PT 10.7 INR 1.04 APTT 24.1 Sodium 140 Potassium 3.3 L Chloride 104 Carbon Dioxide 27 Anion Gap 12.3 BUN 11 Creatinine 0.83 Estimated GFR (MDRD) 87.00 BUN/Creatinine Ratio 13.25 Glucose 100 Calcium 8.8 Total Bilirubin 1.75 H AST 16 ALT 14 Alkaline Phosphatase 46 L Total Creatine Kinase 102 Troponin I 0.0290 Total Protein 5.9 Albumin 3.5 Globulin 2.4 Albumin/Globulin Ratio 1.46 Orders Category Date Time Status EKG-(ED ONLY) Stat CARDIO 01/14/17 11:14 Completed CBC W/ AUTO DIFF Stat LAB 01/14/17 11:25 Completed COMPREHENSIVE METABOLIC PANEL Stat LAB 01/14/17 11:25 Completed CREATINE KINASE Stat LAB 01/14/17 11:25 Completed PARTIAL THROMBOPLASTIN TIME Stat LAB 01/14/17 11:25 Completed PT WITH INR Stat LAB 01/14/17 11:25 Completed TROPONIN I Stat LAB 01/14/17 11:25 Completed ANKLE, LEFT 2 VIEWS Stat RADS 01/14/17 12:[address] ABDOMEN/PELVIS WO CONTRAST Stat RADS 01/14/17 11:[address] CERVICAL SPINE W/O CONTRAST Stat RADS 01/14/17 11:[address] CHEST W/O CONTRAST Stat RADS 01/14/17 11:[address] HEAD W/O CONTRAST Stat RADS 01/14/17 11:[address] LUMBAR SPINE W/O CONTRAST Stat RADS 01/14/17 11:[address] THORACIC SPINE W/O CONTRAST Stat RADS 01/14/17 11:17 Completed ELBOW, LEFT 2 VIEWS Stat RADS 01/14/17 11:21 Completed ELBOW, RIGHT 2 VIEWS Stat RADS 01/14/17 11:21 Completed FEMUR, LEFT 2 VIEWS Stat RADS 01/14/17 11:24 Completed FEMUR, RIGHT 2 VIEWS Stat RADS 01/14/17 11:24 Completed HAND, LEFT 2 VIEWS Stat RADS 01/14/17 11:22 Completed HAND, RIGHT 2 VIEWS Stat RADS 01/14/17 11:22 Completed HUMERUS, LEFT 2VIEWS Stat RADS 01/14/17 11:21 Completed HUMERUS, RIGHT 2 VIEWS Stat RADS 01/14/17 11:21 Completed KNEE, LEFT 1 OR 2 VIEWS Stat RADS 01/14/17 11:14 Completed KNEE, RIGHT 1 OR 2 VIEWS Stat RADS 01/14/17 11:14 Completed SHOULDER, LEFT MIN 2V Stat RADS 01/14/17 11:20 Completed SHOULDER, RIGHT MIN 2V Stat RADS 01/14/17 11:20 Completed TIBIA/FIBULA, LEFT 2 VIEWS Stat RADS 01/14/17 11:24 Completed TIBIA/FIBULA, RIGHT 2 VIEW Stat RADS 01/14/17 11:24 Completed WRIST, LEFT 3 VIEWS Stat RADS 01/14/17 11:23 Taken WRIST, RIGHT 3 VIEWS Stat RADS 01/14/17 11:23 Completed Vital Signs: Temp Pulse Resp BP Pulse Ox 01/14/17 10:48 97.5 F L 67 16 138/70 96 Departure - Departure Time of Disposition: 13:45 Disposition: HOME SELF-CARE Discharge Problem: Falls, Neck pain Back pain Qualifiers: Back pain location: low back pain Back pain Qualifiers: Back pain location: low back pain Instructions: Acute Low Back Pain (ED) Condition: Good Pt referred to PMD for follow-up: No Additional Instructions: Please call your Family Physician as soon as possible to schedule a follow-up appointment. Allergies/Adverse Reactions: Allergies cephalexin [From Keflex] Adverse Reaction (Verified 01/14/17 10:52) Home Medications: Ambulatory Orders Amiodarone HCl 200 mg PO DAILY 06/21/15 Aspirin [Aspirin EC] 81 mg PO DAILYWM 06/21/15 Carvedilol 12.5 mg PO BID 06/21/15 Furosemide [Lasix] 20 mg PO BID 06/21/15 Lisinopril 10 mg PO DAILY 06/21/15 Multivitamin W-Minerals/Lutein [Vision Plus Lutein Vitamin Tab] 1 tab PO DAILY 06/21/15 [place]-3 Fatty Acids/Fish Oil [Fish Oil 1,000 mg Capsule] 1 cap PO BID 06/21/15 Pantoprazole Sodium 40 mg PO DAILY 06/21/15 Potassium Chloride [K-Dur] 1.5 tab PO DAILY 06/21/15 Sertraline HCl 100 mg PO DAILY 06/21/15 Cholecalciferol (Vitamin D3) [Vitamin D3] 400 unit PO BID 09/02/16 Acetaminophen 500 mg PO Q4-6H PRN 01/14/17 Tramadol HCl 1 - 2 tab PO TID 01/14/17
--- NOTE | 2017-01-14 13:44 | CT ---
EXAM: CT ABDOMEN AND PELVIS HISTORY: Pain, fall TECHNIQUE: CT abdomen and pelvis without intravenous contrast. Images were reconstructed using 5 m m section thickness. Reformations were prepared. COMPARISON: 11/22/2016 FINDINGS: A few low attenuation lesions of the liver are stable since the prior study and older exam in 2016 p robably representing cysts. Spleen within normal limits. Gallbladder is absent. Pancreas and adre nal glands are within normal limits. There is a 1.8 cm partially calcified left renal artery aneury sm which is stable. There is a 0.25 cm calculus within the inferior right kidney. The kidneys were otherwise unremarkable. At the right vesicoureteral junction, there are a few punctate calcificati ons measuring 0.2 cm or smaller. These may represent small stones lodged at the vesicoureteral junc tion, just within the urinary bladder or conceivably soft tissue calcifications at this junction alt lamar are new since the previous exam making the latter less likely. The urinary bladder was otherw ise unremarkable. There is no noticeable hydronephrosis. Mild to moderate vascular calcifications. No aneurysmal caliber of the aorta. No gastric distension. The appendix, if present is not seen. Normal bowel gas pattern. Moderate s igmoid diverticulosis. There is mild prostate enlargement. No ascites. Previous bilateral inguinal postop changes suggesting hernia repair. There appears to be mesh place d at the level of the umbilicus with a tiny residual umbilical hernia at the midportion of the mesh remaining present. There is a tiny partial loop of small bowel extending into the subcutaneous fat at the immediate supraumbilical level which may be incarcerated has no signs of strangulated. As st ated, no evidence of bowel obstruction is present. The bones reveal severe degenerative disc and fa cet disease of the spine with scoliosis. The bones appear demineralized. There is subtle deformity of a lateral lower right rib which is likely related to prior fracture. The exam reveals no definit e acute fracture. Lung bases reveal mild cardiomegaly and chronic interstitial changes. No pneumop eritoneum. IMPRESSION: 1. No definite acute injuries. 2. Right nephrolithiasis. Probable tiny calculi in the right vesicoureteral junction. No noticeab le hydronephrosis. 3. Apparent previous hernia repair, bilateral inguinal and periumbilical. The periumbilical level demonstrates mesh which has a residual or recurrent tiny hernia containing a partial loop of small b owel which may be incarcerated although has no signs of strangulation. 4. 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 5. Moderate sigmoid diverticulosis without diverticulitis. 6. Mild prostate enlargement. 7. A few small low attenuation liver lesions are stable, probable cysts.
--- NOTE | 2017-01-14 13:47 | DI ---
Exam: Three x-rays of the left wrist. Comparison: Left hand x-rays performed on the same day. Reason for exam: Pain with fall. FINDINGS: There is narrowing of the radiocarpal joint with marked degenerative changes seen within the wrist. The imaged osseous structures are diffusely demineralized. The scaphoid is not well see n on the examination. No obvious fracture is seen within the radius or ulna. Soft tissue densities seen in the palmar surfaces adjacent to the radius. Impression: 1. Imaging findings are most consistent with scaphoid, lunate advanced collapse with capitate migra tion. 2. No acute fracture or dislocation is seen. If clinical suspicion is high, further imaging may be performed.
== END 2017-01-14 14:30 | disposition home or self-care (01) ==
LOC: ED 10:47
DX: M54.2 Cervicalgia (principal); M54.5 Low back pain; R07.89 Other chest pain; S09.90XA Unspecified injury of head, initial encounter; S39.91XA Unspecified injury of abdomen, initial encounter; S80.12XA Contusion of left lower leg, initial encounter; S80.11XA Contusion of right lower leg, initial encounter; S49.91XA Unspecified injury of right shoulder and upper arm, initial encounter; S49.92XA Unspecified injury of left shoulder and upper arm, initial encounter; W19.XXXA Unspecified fall, initial encounter; E11.9 Type 2 diabetes mellitus without complications; I10 Essential (primary) hypertension; Z79.899 Other long term (current) drug therapy; Z86.73 Personal history of transient ischemic attack (TIA), and cerebral infarction without residual deficits
CPT/HCPCS: 36415; 80053; 82550; 84484; 85025; 85610; 85730; 93005; 93010; 99283